=== PATIENT | male | born 1930 | race Caucasian/White ===

== ENCOUNTER → 2017-06-25 | Emergency (ER) | payer OTHER ==
[~2017-06-25] VITALS: Ht 172.7 cm; Wt 100.7 kg
[~2017-06-25] MED LIST: COZAAR50 MG; JANTOVEN4 MG; LASIX40 MG; NEXIUM2.5 MG; SIMVASTATIN40 MG; TENORMIN50 M1
== END | disposition left against medical advice (07) ==
LOC: ER 11:12
DX: R42 Dizziness and giddiness (principal); J11.1 Influenza due to unidentified influenza virus with other respiratory manifestations

== ENCOUNTER 2017-09-17 10:08 | Emergency (ER) | payer OTHER ==
[~2017-09-17] VITALS: Ht 172.7 cm; Wt 99.8 kg
[2017-09-17] MEDS ORDERED: CORTISPORIN EAR10 M1 OT (12:29)
== END 2017-09-17 16:09 | disposition home or self-care (01) ==
LOC: ER 10:08
DX: M65.871 Other synovitis and tenosynovitis, right ankle and foot (principal); M19.071 Primary osteoarthritis, right ankle and foot; M85.871 Other specified disorders of bone density and structure, right ankle and foot